=== PATIENT | female | born 1985 | race Caucasian/White ===

== ENCOUNTER → 2017-05-06 | Outpatient (CLI) | payer OTHER ==
[~2017-05-06] MED LIST: DICYCLOMINE HCL20 MG PO; DIFLUNISAL500 MG PO; GADOBUTROL 10 MMOL/10 ML VIAL IV ONE; LABETALOL HCL200 MG PO; LINZESS PO; ORPHENADRINE C100 MG PO; PANTOPRAZOLE SO40 MG PO; ZOFRAN ODT4 MG PO
== END ==
LOC: MRI 15:02
PROVIDERS: ATTEND Internal Medicine Gastroenterology
DX: R10.9 Unspecified abdominal pain (principal)
CPT/HCPCS: 74183; A9585

== ENCOUNTER → 2017-05-13 | Day surgery (SDC) | payer OTHER ==
[~2017-05-13] MED LIST changes: +FENTANYL CITRATE/PF 100MCG/2 ML INJ ONE; -GADOBUTROL 10 MMOL/10 ML VIAL IV ONE; +MIDAZOLAM HCL 2 MG/2 ML VIAL ONE; +ONDANSETRON HCL INJ 2 MG/ML VIAL ONE; +PROPOFOL IV EMULSION 10 MG/ML 50 ML VIAL ONE
--- NOTE | 2017-05-13 09:27 | Operative Report ---
DATE OF PROCEDURE: May 13, 2017 REFERRING PHYSICIAN: Dr. Danna Abarca PROCEDURE PERFORMED: Esophagogastroduodenoscopy with biopsies. INDICATIONS FOR PROCEDURE: Upper abdominal pain and nausea. MEDICATION: Patient was done under MAC. Please see anesthesiologist's note. PROCEDURE: With the patient in the left lateral decubitus position, the flexible fiberoptic Olympus gastroscope was introduced into the esophagus under direct visualization without any difficulty. There was some patchy erythema noted in the distal esophagus. The scope was then advanced with ease into the stomach, and the patient appears to be status post a gastric sleeve. The mucosa overlying the antrum revealed some patchy intense erythema and low-grade edema, and biopsies were obtained. The mucosa overlying the body revealed some diffuse erythema and low-grade to moderate edema, and biopsies were obtained. Biopsies were sent to stain for H. pylori. The pylorus was of normal contour and shape. It was intubated with ease. The scope was advanced all the way to the 2nd portion of the duodenum. Biopsies were obtained from the proximal 2nd portion to rule out sprue considering the patient's history of intermittent bouts of diarrhea. The duodenal bulb appeared to be within normal limits. The scope was then withdrawn back into the stomach and retroflexed. The mucosa overlying the fundus and the cardia appeared to be within normal limits. The scope was then straightened out. The stomach was decompressed. The scope was subsequently withdrawn. Patient tolerated the procedure well. IMPRESSION 1. Mild distal esophagitis. 2. Status post gastric sleeve. 3. Gastritis, biopsied. Biopsies sent stain for Helicobacter pylori. 4. Rule out sprue. PLAN: Follow up histology. Increase Protonix to 40 mg 1 p.o. a.c. b.i.d. Job#: [id number] RI cc:DANNA ABARCA M.D.
== END | disposition home or self-care (01) ==
LOC: OR 06:59
PROVIDERS: ATTEND Internal Medicine Gastroenterology
DX: K29.70 Gastritis, unspecified, without bleeding (principal); K20.9 Esophagitis, unspecified; Z98.84 Bariatric surgery status; K59.00 Constipation, unspecified; I10 Essential (primary) hypertension; Z01.810 Encounter for preprocedural cardiovascular examination; Z68.31 Body mass index [BMI] 31.0-31.9, adult
CPT/HCPCS: 43239; 81025; 93005; J2250; J2405

== ENCOUNTER → 2017-09-08 | Outpatient (CLI) | payer OTHER ==
[~2017-09-08] MED LIST changes: -FENTANYL CITRATE/PF 100MCG/2 ML INJ ONE; +GADOBENATE DIMEGLUMINE 1 ML IV ONE; -MIDAZOLAM HCL 2 MG/2 ML VIAL ONE; -ONDANSETRON HCL INJ 2 MG/ML VIAL ONE; -PROPOFOL IV EMULSION 10 MG/ML 50 ML VIAL ONE
--- NOTE | 2017-09-08 16:00 | Diagnostic Imaging Report ---
Examination: MRI BRAIN WITHOUT AND WITH CONTRAST History: Headache. Eye pain. Comparison studies: None Technique: Pre-contrast: Sagittal T2; axial T1, GRE or SWI, DWI, T2 FLAIR Post-contrast: axial, sagittal and coronal T1. Intravenous contrast: 15 mL MultiHance Findings: Scalp: No abnormal signal. No masses. Bone marrow: Normal in signal intensity. Brain volume: Adequate for age. No volume loss. Ventricles: Normal in size and configuration. No hydrocephalus. Parenchyma: No abnormal signal intensities. No masses, hemorrhage, or acute or chronic vascular insults. Extra-axial spaces: No lesion, fluid collection or hematoma. Enhancement: No abnormal enhancement. Suprasellar and sellar region: No abnormalities. Craniocervical junction: No abnormalities. The foramen magnum is patent. No Chiari malformations. Vessels: Normal flow-voids in the arteries and sinuses. Additional findings:None. IMPRESSION: No intracranial abnormalities. Signed by: Dr. Yun Soliman M.D. on 09/08/2017 3:56 PM
--- NOTE | 2017-09-08 16:08 | Diagnostic Imaging Report ---
Examination: MRA HEAD WITHOUT CONTRAST History: Headache and eye pain. Comparison studies: None Technique: 3-D [id number] MR angiogram of the intracranial circulation was obtained. MIP images of the arteries were isolated into anterior and posterior intracranial circulations, 180 degree projections. Sagittal and coronal MPR images, and axial source images are available for evaluation. Findings: Internal carotid arteries: Patent. Anterior cerebral arteries: Patent A1 and A2 segments. The right A1 segment is hypoplastic. Middle cerebral arteries: Patent M1 and M2 segments. Vertebrobasilar circulation: Patent, but diffusely hypoplastic with a left persistent trigeminal artery. Posterior cerebral arteries: Patent bilaterally with a direct/ origin on the left. Anatomical variants: Anterior communicating arteries: Patent. Posterior communicating arteries: Patent on the right. Vertebral arteries:Codominant. IMPRESSION: Normal intracranial MR angiography with normal variant anatomy, as above. Signed by: Dr. Yun Soliman M.D. on 09/08/2017 4:05 PM
--- NOTE | 2017-09-08 16:11 | Diagnostic Imaging Report ---
Examination: MRV HEAD WITHOUT CONTRAST History:Headaches. Eye pain. Comparison studies:None Technique: 3-D [id number] intracranial MR venogram was obtained. Axial source images, MIP images and sagittal and coronal MPR images are available for evaluation Findings: Superior sagittal sinus: Patent Straight sinus: Patent Transverse sinuses: Patent Sigmoid sinuses: Patent Jugular veins:Patent The right jugular system is dominant IMPRESSION: No intracranial venous stenosis or occlusion. Signed by: Dr. Yun Soliman M.D. on 09/08/2017 4:07 PM
== END ==
LOC: MRI 07:36
PROVIDERS: ATTEND Specialist
DX: R51 Headache (principal); G93.2 Benign intracranial hypertension
CPT/HCPCS: 70544; 70553

== ENCOUNTER → 2020-02-21 | Outpatient (CLI) | payer OTHER ==
[~2020-02-21] MED LIST changes: -GADOBENATE DIMEGLUMINE 1 ML IV ONE
--- NOTE | 2020-02-21 16:36 | Diagnostic Imaging Report ---
MRI/MRCP of the abdomen, without contrast, 02/21/2020. History: Left-sided abdominal pain. Comparison: None available. TECHNIQUE: Multiplanar, multisequence images of the abdomen were acquired without the administration of intravenous gadolinium as per the MRCP protocol. Three-dimensional reconstructions were acquired and utilized by the dictating radiologist at the time of interpretation. Discussion: The gallbladder is normal without evidence of filling defect or wall thickening. There is no intrahepatic ductal dilatation. The CBD measures 7 mm in diameter. There is no intraluminal filling defect. Evaluation of intra-abdominal organs is limited without IV contrast. The spleen measures 14.1 cm in length without focal abnormality. The liver, gallbladder, pancreas, kidneys, and adrenal glands are unremarkable. No cyst is seen within the region of the pancreas. There is no evidence of free fluid. IMPRESSION: 1. Mild dilatation of the CBD without evidence of choledocholithiasis or cholelithiasis. 2. Mild splenomegaly. Signed by: Kevin Shirley on 02/21/2020 4:32 PM
== END ==
LOC: MRI 14:47
PROVIDERS: ATTEND Internal Medicine Gastroenterology
DX: R10.32 Left lower quadrant pain (principal); R16.1 Splenomegaly, not elsewhere classified; K83.8 Other specified diseases of biliary tract
CPT/HCPCS: 74181

== ENCOUNTER → 2020-03-07 | Day surgery (SDC) | payer OTHER ==
[~2020-03-07] MED LIST changes: +FENTANYL CITRATE/PF 100MCG/2 ML INJ ONE; +LIDOCAINE HCL 2% LOCAL INJ 5 ML SDV VIAL INJ ONE; +MIDAZOLAM HCL 2 MG/2 ML VIAL ONE; +PANTOPRAZOLE 40 MG 10ML VIAL ONE; +PROPOFOL IV EMULSION 10 MG/ML 20 ML VIAL ONE; +REGLAN10 MG PO
[2020-03-07 14:00] VITALS: BP 125/89
== END | disposition home or self-care (01) ==
LOC: OR 11:55
PROVIDERS: ATTEND Internal Medicine Gastroenterology
DX: K29.70 Gastritis, unspecified, without bleeding (principal); K20.90 Esophagitis, unspecified without bleeding; K21.9 Gastro-esophageal reflux disease without esophagitis; K44.9 Diaphragmatic hernia without obstruction or gangrene; Z98.84 Bariatric surgery status; K58.1 Irritable bowel syndrome with constipation; I10 Essential (primary) hypertension; Z01.810 Encounter for preprocedural cardiovascular examination; Z01.812 Encounter for preprocedural laboratory examination; Z11.59 Encounter for screening for other viral diseases
CPT/HCPCS: 43239; 81025; 93005; C9113; J2001; J2250; J2704; J3010; U0002

== ENCOUNTER → 2020-03-25 | Outpatient (CLI) | payer OTHER ==
[~2020-03-25] MED LIST changes: -FENTANYL CITRATE/PF 100MCG/2 ML INJ ONE; -LIDOCAINE HCL 2% LOCAL INJ 5 ML SDV VIAL INJ ONE; -MIDAZOLAM HCL 2 MG/2 ML VIAL ONE; -PANTOPRAZOLE 40 MG 10ML VIAL ONE; -PROPOFOL IV EMULSION 10 MG/ML 20 ML VIAL ONE
--- NOTE | 2020-03-25 20:17 | Diagnostic Imaging Report ---
Hepatobiliary Scan with Gallbladder Ejection Fraction Reason for exam: Abdominal pain Report: Following intravenous administration of 5.8 millicuries of Tc-99m mebrofenin, dynamic images of the abdomen in the anterior projection were obtained through 26 minutes. Sincalide (CCK analog) 1.8 micrograms was administered intravenously over 30 minutes with additional imaging for determination of gallbladder ejection fraction. Perfusion to the liver is normal. Extraction of tracer from the blood pool by the liver parenchyma is normal. Tracer is seen promptly within the biliary tract. The gallbladder begins to fill by 10 minutes post-injection of tracer and fills adequately. Tracer is seen in the small bowel during the sincalide infusion. The gallbladder ejection fraction with administration of sincalide is 98% (normal greater than 40%). Impression: 1. Filling of the gallbladder excludes the diagnosis of acute cystic duct obstruction/acute cholecystitis. 2. Normal gallbladder ejection fraction of 98% does not support the clinical diagnosis of chronic cholecystitis/gallbladder dyskinesia. Signed by: Dr. Moriah Lunsford M.D. on 03/25/2020 8:14 PM
== END ==
LOC: NM 13:17
PROVIDERS: ATTEND Internal Medicine Gastroenterology
DX: R10.9 Unspecified abdominal pain (principal)
CPT/HCPCS: 78227; A9537